=== PATIENT | female | born 1970 | race Caucasian/White ===

== ENCOUNTER 2020-03-20 10:19 | Outpatient (CLI) | payer OTHER, SELFPAY ==
--- NOTE | 2020-03-20 10:24 | ECG_ITS ---
Measurements Intervals [place] Rate: 70 P: 8 VA: 159 QRS: 14 QRSD: 105 T: 34 QT: 396 QTc: 429 Interpretive Statements SINUS RHYTHM BORDERLINE R WAVE PROGRESSION, ANTERIOR LEADS MINIMAL Q WAVES- HIGH LATERAL LEADS BORDERLINE ECG Electronically Signed On 03-20-2020 11:15:04 CDT by Naveed Arciniega D.O.
== END 2020-03-20 10:20 | disposition home or self-care (01) ==
PROVIDERS: Visit Provider Obstetrics & Gynecology Gynecology
DX: R89.7 Abnormal histological findings in specimens from other organs, systems and tissues (principal); I10 Essential (primary) hypertension; Z01.818 Encounter for other preprocedural examination
CPT/HCPCS: 36415; 86850; 86900; 86901; 93005

== ENCOUNTER 2020-03-28 00:18 | Outpatient (CLI) | payer OTHER, SELFPAY ==
[2020-03-28 19:23] LABS: SARS-CoV-2 RNA PCR Negative
== END 2020-03-28 00:19 | disposition home or self-care (01) ==
LOC: ANHCOVIDDT 00:18
PROVIDERS: Visit Provider Obstetrics & Gynecology Gynecology
DX: Z01.812 Encounter for preprocedural laboratory examination (principal); Z11.59 Encounter for screening for other viral diseases
CPT/HCPCS: 87635; C9803; U0003

== ENCOUNTER 2020-03-31 10:21 | Inpatient (IN) | payer OTHER, SELFPAY ==
[2020-03-19 13:56] VITALS: BMI 33.2
[2020-03-31] VITALS (21 sets, daily range): BP systolic 135–178; BP diastolic 70–95; PULSE 62–92; RESP 16–22; TEMP 36.5–37.2; O2SAT 96–100
[2020-03-31] MEDS: ACETAMINOPHEN 500 MG TABLET 1000 MG PO (06:42)
--- NOTE | 2020-03-31 06:59 | WPDANESEPPF ---
Anes - Initial Pre Proc Eval Procedure: Operation Date: 03/31/20 07:30 Proposed Procedures p Total Abdominal Hysterectomy, Bilateral Salpingo-Oophorectomy - Rody Buckner MD Date/Time: 03/31/20 06:59 Surgeon: Rody Buckner MD Pre Op Diagnosis: morular metaplasia of endometrium Patient Data Age: 49 Gender: F Height: 5 ft 6 in Weight: 93.2 kg Allergies Allergy/AdvReac Type Severity Reaction Status Date / Time Penicillins Allergy Severe SEVERE Verified 03/31/20 06:40 SWELLING morphine AdvReac Intermediate SEVERE Verified 03/31/20 06:40 NAUSEA/VOMITING Home Medications Medication Instructions Recorded Confirmed Type Vitamin B-12 1 tablet PO DAILY 03/19/20 03/31/20 History Vitamin C 1 tablet PO DAILY 03/19/20 03/31/20 History Vitamin D3 1 tablet PO DAILY 03/19/20 03/31/20 History dextroamphetamine-amphetamine 20 mg PO DAILY 03/19/20 03/31/20 History [Adderall] lisinopril 10 mg PO DAILY 03/19/20 03/31/20 History multivitamin 1 tablet PO DAILY 03/19/20 03/31/20 History sertraline 50 mg PO DAILY 03/19/20 03/31/20 History Patient hx anesthesia problems: none Family hx anesthesia problems: none PMFSH Past Medical History Medical History (Updated 03/31/20 @ 06:59 by Wisam Dickey MD) Hypertension Family History Family History (Updated 05/09/14 @ 07:13 by DOCTOR UNKNOWN) Father Hypertension Family history of kidney stones Social History Social History Years smoked: 8 Smoking status: Former smoker Tobacco type: cigarettes Additional smoking assessment comments: 02/2020 Alcohol intake: never Spiritual care concerns: No Anes - Eval Final PreProcedure Day of Procedure 03/31/20 06:59 Patient weight: overweight Heart: regular rate and rhythm Lungs: clear to auscultation Airway: Mallampati scale class II Neurological: alert and oriented Last oral intake: >/= 8 hours ASA classification: II Emergent: no Anesthetic plan: proceed Anesthesia type and monitoring: general ETT and standard monitoring Informed Consent: The patient's anesthetic plan and its attendant risks and benefits were discussed with the patient/family/POA. Questions were solicited and answers provided to the satisfaction of the patient/family/POA.
[2020-03-31] MEDS: LACTATED RINGERS 1,000 ML 30 ML IV CONT ×2 (07:04→08:56)
[2020-03-31] MEDS: KETOROLAC 15 MG/ML VIAL (*BKC) IV PUSH (07:04)
--- NOTE | 2020-03-31 07:09 | PM.IMHP ---
H&P: HPI History of Present Illness Chief complaint: morular metaplasia of endometrium Narrative: Mildred Aguirre is a 49 year old female with menorrhagia. She had endometrial biopsy that showed precancerous morular metaplasia. She chose medical management and rebiopsy at 3 months showed no changes. Patient has chosen to proceed with definitive treatment with hysterectomy. Route of surgery and BSO discussed in detail. Due to covid, patient surgery was delayed. Plan to proceed with JJ-BSO. Risks of infection, bleeding, injury to internal organs (eg bowel, bladder, ureters, etc), DVT, and general anesthesia. Post-op ERT reveiwed. Patient agrees to proceed and questions answered. Medical clearance from PCP obtained. [facility] Past Medical History Medical History (Updated 03/31/20 @ 07:18 by Rody Buckner MD) ADHD Depression Diabetes resolved with gastric bypass History of hysteroscopy Hypertension (normal spontaneous vaginal delivery) x 1 PCOS (polycystic ovarian syndrome) Surgical History Surgical History (Updated 03/31/20 @ 07:17 by Rody Buckner MD) deliv NOS-unsp x 2 Gastric bypass status for obesity H/O tubal ligation History of cholecystectomy Family History Family History (Updated 05/09/14 @ 07:13 by DOCTOR UNKNOWN) Father Hypertension Family history of kidney stones Social History Social History Years smoked: 8 Smoking status: Former smoker Tobacco type: cigarettes Additional smoking assessment comments: 02/2020 Alcohol intake: never Spiritual care concerns: No Meds Home Medications and Allergies Home Medications Medication Instructions Recorded Confirmed Type Vitamin B-12 1 tablet PO DAILY 03/19/20 03/31/20 History Vitamin C 1 tablet PO DAILY 03/19/20 03/31/20 History Vitamin D3 1 tablet PO DAILY 03/19/20 03/31/20 History dextroamphetamine-amphetamine 20 mg PO DAILY 03/19/20 03/31/20 History [Adderall] lisinopril 10 mg PO DAILY 03/19/20 03/31/20 History multivitamin 1 tablet PO DAILY 03/19/20 03/31/20 History sertraline 50 mg PO DAILY 03/19/20 03/31/20 History Allergies Allergy/AdvReac Type Severity Reaction Status Date / Time Penicillins Allergy Severe SEVERE Verified 03/31/20 06:40 SWELLING morphine AdvReac Intermediate SEVERE Verified 03/31/20 06:40 NAUSEA/VOMITING Exam Const: General: healthy appearing and alert Orientation/consciousness: patient oriented x3 Resp: Effort & Inspection: normal respiratory effort Auscultation: clear to auscultation bilaterally Cardio: Rate: regular rate Rhythm: regular rhythm GI: GI Palp: Yes Soft to palpation, No Tenderness to palpation present (GI) and No Palpable mass present : External Female Exam: normal external appearance Speculum Exam - Vagina: normal appearance of the vagina and normal vaginal discharge Speculum Exam - Cervix: normal appearance of the cervix Bimanual exam- vagina & uterus: uterine size normal and consistency normal Bimanual Exam- Adnexa, other: normal adnexae and No adnexal tenderness Neuro: General: patient oriented x3 Assessment and Plan Assessment and plan (1) Menorrhagia: Code(s): N92.0 - Excessive and frequent menstruation with regular cycle Status: Acute Assessment and Plan: secondary to persistent precancerous Morular metaplasia plan to proceed with JJ-BSO plan post op ERT
[2020-03-31] MEDS: CLINDAMYCIN 900 MG/NS 50 ML 900 MG/50 ML PIGGYBACK 50 MG IVPB (07:26)
[2020-03-31] MEDS: GENTAMICIN SULFATE INJ 365 MG in DEXTROSE 5% 100 ML 97.7 MG IVPB (07:49)
--- NOTE | 2020-03-31 09:12 | PM.OP ---
Procedure Note - Brief Procedure Note - Brief Date of procedure: 03/31/20 Pre-op diagnosis: morular metaplasia of endometrium Post-op diagnosis: same Procedure performed: JJ-BSO Anesthesia: GETA Surgeon: Rody Buckner MD Estimated blood loss (mL): 200 Drains: Yes (gibbs) Packing: No Pathology: yes (uterus, tubes, ovaries) Complications: No immediate complications Condition: stable Disposition: PACU Findings: normal appearing tubes, ovaries, and uterus; adhesions at the bladder flap
--- NOTE | 2020-03-31 09:13 | P.DS_ITS ---
DS: Admitting Diagnosis Admitting Diagnosis Admitting Diagnosis: Abnormal histological findings in specimens from other organs, systems and tissues DS: Discharge Diagnosis Discharge Diagnosis (1) Menorrhagia: Code(s): N92.0 - Excessive and frequent menstruation with regular cycle Status: Acute Assessment and Plan: morular metaplasia of endometrium DS: Summary Hospital Course Reason for hospitalization: post op care Status at Discharge Functional status at discharge: independent ambulation Overall status at discharge: patient is progressing back to baseline Time Spent with Patient Time attestation: Total time spent providing and/or coordinating discharge ser vices: Time spent: Less than 30 minutes DS: Data Data Completed and Pending Pending studies at discharge: Pending at discharge 03/31/20 08:10 Surgical [PTH] Routine Discharge Plan Discharge Patient Disposition: Home, Self-Care Discharge Instructions: pelvic rest x 6 wks; no driving x 2 wks; may shower; no lifting > 10 lbs Follow-up/Referrals: Rody Buckner MD [Physician] - 1 Week Discharge Medications: Continued dextroamphetamine-amphetamine [Adderall] 20 mg Tablet 20 mg PO DAILY RF: 0 lisinopril 10 mg Tablet 10 mg PO DAILY RF: 0 sertraline 50 mg Tablet 50 mg PO DAILY RF: 0 multivitamin Tablet 1 tablet PO DAILY RF: 0 Vitamin B-12 1 tablet PO DAILY RF: 0 Vitamin C 1 tablet PO DAILY RF: 0 Vitamin D3 1 tablet PO DAILY RF: 0 Primary Care Provider: PHYSICIAN NOT ON STAFF,NONSTAFF Attending physician on admission: Rody Buckner
[2020-03-31] MEDS: DEXTROSE 5%/LACTATED RINGERS 1,000 ML 125 ML (11:45)
--- NOTE | 2020-03-31 12:13 | OP_ITS ---
DATE OF PROCEDURE: 03/31/2020 PREOPERATIVE DIAGNOSIS: Morular metaplasia and menorrhagia. POSTOPERATIVE DIAGNOSIS: Morular metaplasia and menorrhagia. PROCEDURE: Total abdominal hysterectomy, bilateral salpingo-oophorectomy. ANESTHESIA: General with ET tube. FINDINGS: The uterus, tubes, and ovaries appear grossly normal. The bladder is densely adherent to the lower uterine segment. ESTIMATED BLOOD LOSS: 200 mL. PATHOLOGY: Uterus, tubes, and ovaries. DESCRIPTION OF PROCEDURE: The patient was taken to the operating room, placed under anesthesia in the dorsal supine position. She was prepped and draped in the usual sterile fashion. A Pfannenstiel skin incision was made through her prior incision, carried down to the underlying layer of fascia. Fascia was nicked in the midline with a scalpel and extended laterally using Alston scissors. [place] was used to tent the fascia, and the fascia was dissected off using sharp dissection due to dense adhesions. The Bovie cautery was used to cauterize subcutaneous tissues and obtain hemostasis. The pean was used to enter the peritoneum high in the incision. The incision was extended with blunt traction. The bowel was packed away using moist laparotomy sponges. The uterus was grasped on the cornu with large peans and the medium Víctor retractor was used to retract the bladder. The round ligaments were doubly ligated with 0 Vicryl, transected, and suture ligated with 0 Vicryl. The anterior leaf of the broad ligament was incised meeting in the midline. The bladder flap was dissected off using sharp and blunt dissection. Due to dense adhesions, especially on the right, the sharp dissection was mainly utilized. The window was created in the posterior leaf of the broad ligament. The infundibulopelvic ligaments are doubly clamped, transected, and suture ligated with 0 Vicryl. The uterine vessels were skeletonized, clamped, transected and suture ligated with 0 Vicryl. The cardinal and uterosacral ligaments were serially clamped, transected, and suture ligated with 0 Vicryl. The uterosacral ligaments were tagged for future use. The scalpel was used to enter the vaginal cuff anteriorly. The vaginal cuff was grasped with an Allis clamp anteriorly and posteriorly as the specimen was amputated. The vaginal cuff was closed using 0 Vicryl in a running locked fashion. The angles were tied to the ipsilateral uterosacral ligaments. The pelvis was irrigated and noted to be hemostatic. All instruments and sponges were removed. The fascia was closed using 0 Vicryl in a running fashion. Subcutaneous tissues were irrigated and noted to be hemostatic. The skin incision was closed using 4-0 Vicryl in a subcuticular fashion. DermaFlex was placed over the incision. The patient was awakened from anesthesia and taken to Recovery in stable condition. Amelia I MT: Keturah
[2020-03-31] MEDS: KETOROLAC 30 MG/ML VIAL (*BKC) IV PUSH (16:20)
[2020-03-31] MEDS: SIMETHICONE 80 MG TAB.CHEW PO (22:01)
[2020-04-01] MEDS: KETOROLAC 30 MG/ML VIAL (*BKC) IV PUSH ×2 (04:23→11:01)
[2020-04-01] MEDS: SIMETHICONE 80 MG TAB.CHEW PO ×3 (04:30→22:09)
[2020-04-01 04:42] VITALS: BP 154/79; PULSE 59; RESP 18; TEMP 37; O2SAT 98
[2020-04-01 05:28] LABS: Basophils Percent Auto 0.2 % (0.2-1.2); Eosinophils Percent Auto 0.2 % (0-4.4); Hematocrit 30.3 % (37.0-47.0); Hemoglobin 10.1 g/dL (12.0-15.0); Immature Granulocyte Absolute 0.03 K/mm3 (0.00-0.031); Immature Granulocyte Percent A 0.3 % (0-0.5); Lymphocytes Absolute Auto 1.16 K/mm3 (0.9-3.2); Lymphocytes Percent Auto 12.9 % (18.3-44.2); Mean Corpuscular HGB Conc 33.3 g/dl (32-36); Mean Corpuscular Hemoglobin 27.9 pg (26-34); Mean Corpuscular Volume 83.7 fl (80-100); Mean Platelet Volume 11.7 fl (7.4-10.4); Monocytes Absolute Auto 0.7 K/mm3 (0.1-0.6); Monocytes Percent Auto 7.3 % (2.6-8.5); Neutrophils Absolute Auto 7.1 K/mm3 (1.3-6.7); Neutrophils Percent Auto 79.1 % (45.5-73.1); Platelet Count Result 224 k/mm3 (150-375); Red Blood Count 3.62 M/mm3 (4.2-5.4); Red Cell Distribution Width 12.7 % (11.5-14.5)
--- NOTE | 2020-04-01 07:08 | PM.GYNPNOP ---
ANIMAL SCIENCE PROFESSOR - A/P Assessment and plan (1) S/P JJ-BSO: Code(s): Z90.710 - Acquired absence of both cervix and uterus; Z90.722 - Acquired absence of ovaries, bilateral; Z90.79 - Acquired absence of other genital organ(s) Status: Acute Assessment and Plan: Doing well. Continue care Postoperative Procedures: Procedures Operation Date: 03/31/20 07:30 Actual Procedures Side Surgeon p Total Abdominal Hysterectomy, Bilateral Salpingo-Oophorectomy Bilateral Rody Buckner MD Time Spent With Patient Time: Total time spent is greater than 50% in coordination of care (as documented) at patient's floor/unit and/or counseling patient: Time with patient: less than 15 minutes ANIMAL SCIENCE PROFESSOR- PN:Subj Post-Op Subjective Date/time seen: 04/01/20 07:08 Subjective: patient reports feeling better and pain is well controlled Exam GI: Other: soft, nt inc c/d/i ANIMAL SCIENCE PROFESSOR - PN: Obj Data Vital Signs Vital Signs: Vital Signs - 24 hr 03/31/20 07:33 03/31/20 08:56 03/31/20 09:10 Temperature 97.7 F 98.4 F Pulse Rate 65 62 63 Respiratory Rate 16 22 H 20 Blood Pressure 146/81 H 135/70 158/78 H Pulse Oximetry 100 100 100 03/31/20 09:25 03/31/20 09:40 03/31/20 09:55 Temperature Pulse Rate 65 65 69 Respiratory Rate 20 20 18 Blood Pressure 157/77 H 151/86 H 154/82 H Pulse Oximetry 98 97 98 03/31/20 10:10 03/31/20 10:20 03/31/20 10:30 Temperature 98.2 F Pulse Rate 73 77 87 Respiratory Rate 20 20 18 Blood Pressure 141/81 H 145/83 H 156/91 H Pulse Oximetry 98 98 97 03/31/20 10:45 03/31/20 11:00 03/31/20 11:30 Temperature Pulse Rate 65 88 92 Respiratory Rate 18 18 18 Blood Pressure 153/81 H 163/88 H 165/95 H Pulse Oximetry 96 97 96 03/31/20 11:49 03/31/20 12:00 03/31/20 13:00 Temperature 98.3 F Pulse Rate 84 84 Respiratory Rate 20 18 18 Blood Pressure 159/94 H 156/94 H Pulse Oximetry 98 98 03/31/20 14:00 03/31/20 16:00 03/31/20 20:00 Temperature 98.9 F Pulse Rate 80 86 64 Respiratory Rate 16 20 20 Blood Pressure 160/90 H 164/92 H 162/80 H Pulse Oximetry 99 100 100 03/31/20 22:05 03/31/20 22:30 03/31/20 22:45 Temperature Pulse Rate 68 Respiratory Rate Blood Pressure 178/87 H 175/74 H 169/78 H Pulse Oximetry 04/01/20 04:42 Temperature 98.6 F Pulse Rate 59 L Respiratory Rate 18 Blood Pressure 154/79 H Pulse Oximetry 98 Intake/Output Intake/Output: Intake & Output 03/29/20 03/30/20 03/31/20 04/01/20 23:59 23:59 23:59 23:59 Intake Total 934.796 4076 Output Total 700 5050 Balance -310.875 -3850 Meds/Results Medications: Active Medications Generic Name Dose Route Start Last Admin Trade Name Freq PRN Reason Stop Dose Admin Hydrocodone Bitart/Acetaminophen 1 tab 03/31/20 10:21 [place] 5-325 Mg PO Q3H PRN Pain Rated 5 or Less Hydrocodone Bitart/Acetaminophen 1 tab 03/31/20 10:21 04/01/20 04:30 [place] 10-325 Mg PO 1 tab Q3H PRN Administration Pain Rated 6 or Greater Estradiol 0.05 mg 03/31/20 10:21 [place] 7 Day TRANSDERM [id number] [facility] Ketorolac Tromethamine 30 mg 03/31/20 16:01 04/01/20 04:23 Toradol Inj IV PUSH 30 mg Q6H PRN Administration Pain Rated 4-6 Lisinopril 10 mg 04/01/20 09:00 Prinivil PO DAILY [facility] Non-Formulary Medication 20 mg 04/01/20 09:00 Dextroamphetamine-Amphetamine [Adderall] PO 05/01/20 09:01 DAILY [facility] Ondansetron HCl 4 mg 03/31/20 10:21 Zofran Inj IV PUSH Q6H PRN Nausea Sertraline HCl 50 mg 04/01/20 09:00 Zoloft PO DAILY [facility] Simethicone 80 mg 03/31/20 10:21 04/01/20 04:30 Mylicon PO 80 mg Q2H PRN Administration Gas Labs CBC & Chem 7: 04/01/20 04:50 Labs: Laboratory Results - last 24 hr 04/01/20 04:50 WBC 9.0 RBC 3.62 L Hgb 10.1 L Hct 30.3 L MCV 83.7 MCH 27.9 MCHC 33.3 RDW 12.7 Plt Count 224 MPV 11.7 H Immature Gran % (Auto) 0.3 Neut % (Auto) 79.
[2020-04-01 08:30] VITALS: BP 150/77; PULSE 67; RESP 18; TEMP 36.7; O2SAT 98
[2020-04-01] MEDS: lisinopriL 10 MG TABLET PO (08:44)
[2020-04-01] MEDS: SERTRALINE HCL 50 MG TABLET PO (08:44)
[2020-04-01] MEDS: ESTRADIOL 7 DAY 0.05 MG PATCH TRANSDERM (08:45)
--- NOTE | 2020-04-01 15:10 | P.PNAN_ITS ---
Anes - Prog Note Post-Op Date/Time: 04/01/20 15:10 Cardiovascular status: normal Respiratory status: normal Airway patency: baseline Mental status: baseline Post-Op hydration status: normal Vital Signs: Last Vital Signs Temp 98.1 F 04/01/20 08:30 Pulse 67 04/01/20 08:30 Resp 18 04/01/20 08:30 BP 150/77 H 04/01/20 08:30 Pulse Ox 98 04/01/20 08:30 I/O: Intake & Output 03/31/20 04/01/20 04/01/20 23:59 07:59 15:59 Intake Total 200 1200 Output Total 500 5007 600 Balance -300 -3875 -600 Laboratory Tests 04/01/20 04:50 04/01/20 04:50 WBC 9.0 RBC 3.62 L Hgb 10.1 L Hct 30.3 L MCV 83.7 MCH 27.9 MCHC 33.3 RDW 12.7 Plt Count 224 MPV 11.7 H Immature Gran % (Auto) 0.3 Neut % (Auto) 79.1 H Lymph % (Auto) 12.9 L [place] % (Auto) 7.3 Eos % (Auto) 0.2 Baso % (Auto) 0.2 Lymph # (Auto) 1.16 [place] # (Auto) 0.7 H Eos # (Auto) 0.0 Baso # (Auto) 0.0 Abs Immat Gran (auto) 0.03 Absolute Neuts (auto) 7.1 H Absolute Nucleated RBC 0.0 Nucleated RBC % 0.0 Post-procedural complaints: none Patient Feedback: Patient satisfied with anesthetic care.
[2020-04-01 16:15] VITALS: BP 139/76; PULSE 64; PULSE 67; RESP 18; TEMP 36.8; O2SAT 98
[2020-04-01 19:15] VITALS: BP 152/81; PULSE 66; RESP 12; TEMP 36.8
[2020-04-02] MEDS: lisinopriL 10 MG TABLET PO (08:23)
[2020-04-02] MEDS: SERTRALINE HCL 50 MG TABLET PO (08:24)
[2020-04-02] MEDS: SIMETHICONE 80 MG TAB.CHEW PO (08:24)
[2020-04-02 08:33] VITALS: BP 139/83; PULSE 66; RESP 18; TEMP 36.8; O2SAT 96
[2020-04-02 11:07] VITALS: BP 157/85; PULSE 58; TEMP 36.5; O2SAT 100
[2020-04-02] MEDS: ACETAMINOPHEN 325 MG TABLET 650 MG PO (12:47)
[2020-04-02] MEDS: ONDANSETRON HCL ODT 4 MG TABLET PO (12:48)
--- NOTE | 2020-04-02 13:54 | PC.NURSE ---
At 1045 today, attempt was made for patient to discharge. Patient stated she felt nauseous before getting into wheelchair. Patient was put back in bed and physician called. Order given for nausea medication and pain control for headache. Will continue to monitor and discharge when patient feels better.
== END 2020-04-02 15:06 | disposition home or self-care (01) | DRG 743 ==
LOC: ANHOB2 10:29
PROVIDERS: Admitting Provider Obstetrics & Gynecology Gynecology; Visit Provider Obstetrics & Gynecology Gynecology
PROC: 0UT94ZZ Resection of Uterus, Percutaneous Endoscopic Approach (ICD-10-PCS; principal; 2020-03-31 07:30)
DX: N85.8 Other specified noninflammatory disorders of uterus (principal); N92.0 Excessive and frequent menstruation with regular cycle; I10 Essential (primary) hypertension; F90.9 Attention-deficit hyperactivity disorder, unspecified type; F32.9 Major depressive disorder, single episode, unspecified; E28.2 Polycystic ovarian syndrome; Z98.84 Bariatric surgery status; Z87.891 Personal history of nicotine dependence; Z86.39 Personal history of other endocrine, nutritional and metabolic disease; Z90.49 Acquired absence of other specified parts of digestive tract; E66.9 Obesity, unspecified; Z68.33 Body mass index [BMI] 33.0-33.9, adult
CPT/HCPCS: 36415; 85025; 87635; 88307; A9270; C9803; J0330; J1100; J1170; J1580; J1885; J2250; J2405; J2704; J3010; J7120; J7121; U0003

== ENCOUNTER 2021-11-29 05:17 | Emergency (ER) | payer OTHER, SELFPAY ==
[2021-11-29] VITALS (34 sets, daily range): BP systolic 143–167; BP diastolic 88–95; PULSE 62–89; RESP 13–24; TEMP 36.6; O2SAT 96–100
--- NOTE | ~2021-11-29 | CT_ITS ---
EXAMINATION: CT abdomen pelvis w con DATE: 11/29/2021 07:46 INDICATION: Elevated lipase. Epigastric pain. TECHNIQUE: Computed tomography (CT) of the abdomen and pelvis was performed without intravenous contr ast. The dose-length product was 610.44 mGy-cm. Automated exposure control and iterative reconstructi on technique were employed. COMPARISON: None. FINDINGS: Lung bases unremarkable. No significant pleural or pericardial effusion. Heart size normal. No significant vascular abnormality. No lymphadenopathy. Status post cholecystectomy. There are surg ical changes of gastric bypass. The liver, spleen, pancreas, adrenal glands and kidneys are unremarkable. Nonobstructive bowel gas pa ttern. No acute osseous abnormality. Mild wedge deformities of the lower thoracic vertebra with accen tuated kyphosis, likely chronic. IMPRESSION: 1. No acute abdominal abnormality. Reviewed, dictated and finalized at location A.
--- NOTE | ~2021-11-29 | XR_ITS ---
EXAMINATION: XR chest 2V 11/29/2021 05:32 INDICATION: Chest pain PROCEDURE: 2 view chest COMPARISON: 01/21/2006 FINDINGS: The lungs are clear. The cardiomediastinal silhouette is within normal limits. There are no pleural effusions. There is no pneumothorax suspected. IMPRESSION: 1: NO ACUTE CARDIOPULMONARY DISEASE. Reviewed, dictated and finalized at location A.
--- NOTE | 2021-11-29 05:19 | ECG_ITS ---
Measurements Intervals [place] Rate: 70 P: 11 CA: 148 QRS: 12 QRSD: 106 T: 35 QT: 381 QTc: 413 Interpretive Statements SINUS RHYTHM NORMAL ECG NO PREVIOUS ECG AVAILABLE FOR COMPARISON Electronically Signed On 11-29-2021 12:37:58 CDT by Dariel Anthony M.D.
[2021-11-29] MEDS: ASPIRIN 81 MG CHEWABLE TABLET 324 MG PO (05:39)
[2021-11-29 05:57] LABS: Basophils Percent Auto 0.3 % (0.2-1.2); Eosinophils Absolute Auto 0.2 K/mm3 (0-0.3); Eosinophils Percent Auto 2.7 % (0-4.4); Hematocrit 33.2 % (37.0-47.0); Hemoglobin 10.1 g/dL (12.0-15.0); Lymphocytes Absolute Auto 1.44 K/mm3 (0.9-3.2); Lymphocytes Percent Auto 24.5 % (18.3-44.2); Mean Corpuscular HGB Conc 30.4 g/dl (32-36); Mean Corpuscular Hemoglobin 25.4 pg (26-34); Mean Corpuscular Volume 83.4 fl (80-100); Mean Platelet Volume 9.8 fl (7.4-10.4); Monocytes Absolute Auto 0.5 K/mm3 (0.1-0.6); Monocytes Percent Auto 8.3 % (2.6-8.5); Neutrophils Absolute Auto 3.8 K/mm3 (1.3-6.7); Neutrophils Percent Auto 64.2 % (45.5-73.1); Platelet Count Result 287 k/mm3 (150-375); Red Blood Count 3.98 M/mm3 (4.2-5.4); Red Cell Distribution Width 14.9 % (11.5-14.5); White Blood Count 5.9 K/mm3 (4.5-10.0)
[2021-11-29 06:08] LABS: Alanine Aminotransferase 20 U/L (4-35); Albumin Level 3.8 g/dL (3.5-5.1); Alkaline Phosphatase 78 U/L (38-126); Anion Gap 3 mmol/L (8-16); Aspartate Amino Transferase 30 U/L (14-36); Bilirubin,Total 0.2 mg/dL (0.2-1.3); Blood Urea Nitrogen 9 mg/dL (7-17); Calcium 8.7 mg/dL (8.4-10.2); Carbon Dioxide 31 mmol/L (22-30); Chloride 104 mmol/L (98-107); Estimated Glomerular Filt Rate > 60; Glucose 68 mg/dL (65-110); Lipase 364 U/L (23-300); Potassium 3.6 mmol/L (3.4-5.0); Sodium 138 mmol/L (137-145)
--- NOTE | 2021-11-29 06:08 | ED.CHESTPAIN ---
HPI - Chest Pain General Chief Complaint: Chest Pain <Paras Biswas MD - Last Filed: 11/29/21 18:57> Stated Complaint: Chest/back pain <Paras Biswas MD - Last Filed: 11/29/21 18:57> Time Seen by Provider: 11/29/21 05:51 <Paras Biswas MD - Last Filed: 11/29/21 18:57> Source: patient, family and RN notes reviewed <Paras Biswas MD - Last Filed: 11/29/21 18:57> History of Present Illness HPI narrative: 51-year-old female presenting to the emergency department for evaluation of left-sided chest pain. Patient states the chest pain started yesterday and was initially associated with some dizziness and lightheadedness. Patient states she did go home early from work and to the pain did not improve. Patient states the dizziness and lightheadedness has resolved. Patient denies any shortness of breath but states that the pain is worsened when she does take a deep breath. Patient states the pain is in the left lateral chest but does not radiate to her arm neck or back. Patient denies any previous cardiac history. Patient did have a stress test a few years ago which was negative. Patient denies any prior history of PE or DVT. Patient denies any long car rides or plane trips. Patient does take hormone replacement due to her previous hysterectomy. Patient denies any lower extremity pain <Paras Biswas MD - Last Filed: 11/29/21 18:57> Related Data Home Medications: Home Medications Medication Instructions Recorded Confirmed Vitamin B-12 1 tablet PO DAILY 03/19/20 03/31/20 Vitamin C 1 tablet PO DAILY 03/19/20 03/31/20 Vitamin D3 1 tablet PO DAILY 03/19/20 03/31/20 dextroamphetamine-amphetamine 20 mg PO DAILY 03/19/20 03/31/20 [Adderall] lisinopril 10 mg PO DAILY 03/19/20 03/31/20 multivitamin 1 tablet PO DAILY 03/19/20 03/31/20 sertraline 50 mg PO DAILY 03/19/20 03/31/20 <Paras Biswas MD - Last Filed: 11/29/21 18:57> Allergies/Adverse Reactions: Allergies Allergy/AdvReac Type Severity Reaction Status Date / Time Penicillins Allergy Mild Unknown Verified 11/29/21 08:07 morphine AdvReac Intermediate SEVERE Verified 02/18/21 07:50 NAUSEA/VOMITING <Paras Biswas MD - Last Filed: 11/29/21 18:57> Review of Systems Review of Systems: CONSTITUTIONAL: Denies fever, chills, or sweats. EYES: Denies visual changes, redness, or discharge. ENT: Denies rhinorrhea, congestion, sore throat, or otalgia. CARDIOVASCULAR: Left-sided chest pain that is worsened with palpation and with inspiration. RESPIRATORY: Denies cough or dyspnea. GASTROINTESTINAL: Denies abdominal pain, nausea, vomiting, or diarrhea. GENITOURINARY: Denies dysuria or hematuria. SKIN: Denies rash or itching. MUSCULOSKELETAL: Denies back pain, joint pain, or myalgia. NEUROLOGIC: Denies headache, numbness, or weakness. PSYCHIATRIC: Denies anxiety or depression. <Paras Biswas MD - Last Filed: 11/29/21 18:57> All systems reviewed & are unremarkable except as noted in HPI and below <Paras Biswas MD - Last Filed: 11/29/21 18:57> [facility] Past Medical History Medical History: Medical History (Updated 11/29/21 @ 12:42 by Ana Arreaga MD) ADHD Depression Diabetes resolved with gastric bypass Hypertension (normal spontaneous vaginal delivery) x 1 PCOS (polycystic ovarian syndrome) <Paras Biswas MD - Last Filed: 11/29/21 18:57> Surgical History Surgical History: Surgical History (Updated 02/18/21 @ 07:50 by Javier Ho) deliv NOS-unsp x 2 Gastric bypass status for obesity H/O tubal ligation History of cholecystectomy History of hysteroscopy <Paras Biswas MD - Last Filed: 11/29/21 18:57> Family History Family History: Family History (System 02/18/21 @ 07:50 by Javier Ho) Father Hypertension Family history of kidney stones <Paras Biswas MD - Last Filed: 11/29/21 18:57> Social History Social History: Social History (
[2021-11-29 06:09] LABS: INR 1.1; Prothrombin Time 13.6 Seconds (11.1-14.7)
[2021-11-29 06:19] LABS: Troponin I < 0.012 ng/mL (0.000-0.034)
[2021-11-29] MEDS: NITROGLYCERIN SL 0.4 MG TABLET SUBLINGUAL (06:23)
[2021-11-29 06:27] LABS: D Dimer 0.35 ug/mL (<0.48)
[2021-11-29] MEDS: SODIUM CHLORIDE 0.9% IV 1,000 ML 999 ML IV CONT (07:21)
[2021-11-29 09:15] LABS: Troponin I < 0.012 ng/mL (0.000-0.034)
[2021-11-29 11:55] LABS: Troponin I < 0.012 ng/mL (0.000-0.034)
[2021-11-29] MEDS: KETOROLAC 30 MG/ML VIAL (*BKC) IV PUSH (12:46)
== END 2021-11-29 12:53 | disposition home or self-care (01) ==
PROVIDERS: Emergency Medicine; Emergency Provider Emergency Medicine
DX: R07.9 Chest pain, unspecified (principal); F90.9 Attention-deficit hyperactivity disorder, unspecified type; F32.A Depression, unspecified; Z98.84 Bariatric surgery status; E28.2 Polycystic ovarian syndrome; Z87.891 Personal history of nicotine dependence
CPT/HCPCS: 36415; 71046; 74177; 80053; 83690; 84484; 85025; 85380; 85610; 85730; 93005; 96361; 96365; 96375; 99284; A9270; J0131; J1885; J7030; Q9967